=== PATIENT | female | born 1970 | race Two or more races ===

== ENCOUNTER 2018-04-29 23:58 | Emergency (ER) | payer BC ==
[~2018-04-29] VITALS: Ht 165.1 cm; Wt 117.8 kg
[2018-04-30] MEDS ORDERED: ASPIRIN 81 MG TABLET CHEW PO ONE (00:30)
[2018-04-30 00:42] LABS: BASOPHILS # (AUTO) 0.03 x10^3/uL (0-0.1); BASOPHILS % (AUTO) 0 % (0-1); EOSINOPHILS # (AUTO) 0.09 x10^3/uL (0-0.4); EOSINOPHILS % (AUTO) 1 % (1-7); LYMPHOCYTES # (AUTO) 3.16 x10^3/uL (1-3.4); LYMPHOCYTES % (AUTO) 29 % (22-44); MD NO; MEAN CORPUSCULAR HEMOGLOBIN 28.8 pg (27.0-34.8); MEAN CORPUSCULAR HGB CONC 33.4 g/dL (32.4-35.8); MEAN CORPUSCULAR VOLUME 86.2 fL (80-100); MEAN PLATELET VOLUME 8.4 fL (7.4-10.4); MONOCYTES # (AUTO) 0.69 x10^3/uL (0.2-0.8); MONOCYTES % (AUTO) 6 % (2-9); NEUTROPHILS # (AUTO) 6.79 x10^3/uL (1.8-6.8); NEUTROPHILS % (AUTO) 63 % (42-75); PLATELET COUNT 278 x10^3/uL (130-400); RED BLOOD COUNT 4.65 x10^6/uL (3.82-5.3); RED CELL DISTRIBUTION WIDTH 13.5 % (9.6-15.2)
[2018-04-30] MEDS ORDERED: ASPIRIN 81 MG TABLET CHEW ONE (00:44)
[2018-04-30 00:51] LABS: ALBUMIN 3.5 g/dL (3.4-5.0); ANION GAP 7 mmol/L (5-15); CALCIUM 8.7 mg/dL (8.5-10.1); CHLORIDE 108 mmol/L (98-107); CREATININE 0.81 mg/dL (0.55-1.02)
--- NOTE | 2018-04-30 00:51 | NUR ---
PT MEDICATED ORDERED AND PLACED ON MONITOR. PT AWAITING TEST RESULTS AND ERP RECHECK. PT POSITIONED FOR COMFORT AND IS CURRENTLY PAIN FREE.
[2018-04-30 00:55] LABS: TROPONIN I < 0.015 ng/mL (0.000-0.045)
--- NOTE | 2018-04-30 01:22 | NUR ---
Pt reports decreased chest pain, remains on cont cardiac monitoring.
[2018-04-30 01:42] VITALS: BP 140/80
== END 2018-04-30 01:45 | disposition home or self-care (01) ==
LOC: ED 04-30 01:39
DX: R07.89 Other chest pain (principal); R51 Headache; I10 Essential (primary) hypertension
CPT/HCPCS: 36415; 71045; 80048; 82040; 84484; 85025; 93005; 99284

== ENCOUNTER 2019-09-13 05:11 | Emergency (ER) | payer BC ==
[~2019-09-13] VITALS: Ht 162.6 cm; Wt 114.8 kg
[2019-09-13] MEDS ORDERED: METF500T17 PO (05:30)
[2019-09-13] MEDS ORDERED: ATOR10TA9 PO (05:30)
[2019-09-13] MEDS ORDERED: HYDR12.517 PO (05:30)
--- NOTE | 2019-09-13 05:33 | NUR ---
PT CAME IN TODAY DUE TO BEING UNABLE TO MOVE MUCH DUE TO EXCRUCIATING PAIN IN NECK. PT STATES SHE CAN NO LONGER LAY BACK DUE TO PAIN. PT STATES HER PAIN ORIGINATED ON BOTH SIDES 3 DAYS AGO AND THEN GOT BETTER ON THE LEFT BUT THE RIGHT IS STILL IN SIGNIFICANT PAIN. PT DENIES TRAUMA, LIFESTYLE CHANGES OR ANY CLUE WHERE IT STARTED. PT GROSS NEURO INACT. DENIES VERTIGO OR OTHER SYMPTOMS. PT STATES CHEWING HURTS WELL. CHRISTOPHER SCHMITT AT PT PLACED ON BP/SPO2 MONITORING. WCTM.
[2019-09-13] MEDS ORDERED: BACL20TA PO (05:55)
[2019-09-13] MEDS ORDERED: ALLO100T30 PO (05:55)
[2019-09-13] MEDS ORDERED: PRED1TAB19 PO (05:55)
[2019-09-13] MEDS ORDERED: DOXY100T PO (05:55)
[2019-09-13] MEDS ORDERED: ENAL10TA9 PO (05:55)
[2019-09-13] MEDS ORDERED: ONDANSETRON 2MG/ML, 2ML ONE (05:58)
[2019-09-13] MEDS ORDERED: HYDROmorphone 1 MG/ML, 1ML INJ ONE (05:58)
[2019-09-13] MEDS ORDERED: HYDROmorphone 1 MG/ML, 1ML INJ IV ONE (06:00)
[2019-09-13] MEDS ORDERED: ONDANSETRON 2MG/ML, 2ML IVPush ONE (06:00)
[2019-09-13 06:05] LABS: BASOPHILS # (AUTO) 0.05 x10^3/uL (0-0.1); BASOPHILS % (AUTO) 0 % (0-1); EOSINOPHILS # (AUTO) 0.04 x10^3/uL (0-0.4); EOSINOPHILS % (AUTO) 0 % (1-7); LYMPHOCYTES # (AUTO) 2.63 x10^3/uL (1-3.4); LYMPHOCYTES % (AUTO) 19 % (22-44); MD NO; MEAN CORPUSCULAR HEMOGLOBIN 28.3 pg (27.0-34.8); MEAN CORPUSCULAR HGB CONC 32.6 g/dL (32.4-35.8); MEAN PLATELET VOLUME 8.1 fL (7.4-10.4); MONOCYTES # (AUTO) 0.79 x10^3/uL (0.2-0.8); MONOCYTES % (AUTO) 6 % (2-9); NEUTROPHILS # (AUTO) 10.67 x10^3/uL (1.8-6.8); NEUTROPHILS % (AUTO) 75 % (42-75); PLATELET COUNT 269 x10^3/uL (130-400); RED BLOOD COUNT 4.45 x10^6/uL (3.82-5.3); RED CELL DISTRIBUTION WIDTH 14.4 % (9.6-15.2)
[2019-09-13 06:10] LABS: ANION GAP 8 mmol/L (5-15); CALCIUM 8.4 mg/dL (8.5-10.1); CHLORIDE 106 mmol/L (98-107)
--- NOTE | 2019-09-13 06:13 | NUR ---
pt medicated per apr. pt states she already feels more relaxed. pt NAD, resting in gurney with eyes closed, 2L NC applied to maintain O2 sat. WCTM.
[2019-09-13] MEDS ORDERED: OMNIPAQUE 350 MG/ML, 75ML BOTTLE ONE (06:39)
--- NOTE | 2019-09-13 06:46 | NUR ---
pt back from CT resting in RAMBO pal, denies additional needs, states she is comfortable, waiting on CT read, no other changes in condition. WCTM.
--- NOTE | 2019-09-13 07:01 | NUR ---
BEDSIDE REPORT FROM SENG PATRICIA. PT CARE TRANSFERRED AT THIS TIME.
[2019-09-13] MEDS ORDERED: DIAZEPAM 5 MG TABLET PO ONE (07:30)
[2019-09-13] MEDS ORDERED: DIAZEPAM 5 MG/ML, 2ML ONE (07:34)
--- NOTE | 2019-09-13 07:44 | NUR ---
PT MEDICATED PER APR, NOW TO MRI
[2019-09-13 09:09] VITALS: BP 157/84
== END 2019-09-13 10:37 | disposition home or self-care (01) ==
LOC: ED 06:39
DX: M50.322 Other cervical disc degeneration at C5-C6 level (principal); M48.02 Spinal stenosis, cervical region; M50.222 Other cervical disc displacement at C5-C6 level; R51 Headache; I10 Essential (primary) hypertension; X58.XXXA Exposure to other specified factors, initial encounter; Y93.89 Activity, other specified; Y92.89 Other specified places as the place of occurrence of the external cause; Y99.8 Other external cause status
CPT/HCPCS: 36415; 70498; 72141; 80048; 85025; 96374; 96375; 99285; J1170; J2405; Q9967